=== PATIENT | female | born 2000 ===

== ENCOUNTER 2023-03-27 10:35 | Outpatient (CLI) | payer OTHER | END 2023-03-27 12:00 | disposition home or self-care (01) | LOC: PRENATAL 10:35 | PROVIDERS: ATTEND Obstetrics & Gynecology Maternal & Fetal Medicine | DX: O26.849 Uterine size-date discrepancy, unspecified trimester (principal); O36.8199 Decreased fetal movements, unspecified trimester, other fetus; O40.1XX0 Polyhydramnios, first trimester, not applicable or unspecified; Z3A.35 35 weeks gestation of pregnancy ==